=== PATIENT | female | born 1950 | race Caucasian/White ===

== ENCOUNTER 2022-12-22 11:13 | Emergency (ER) | payer MEDICARE, SELFPAY ==
[2022-12-22 11:33] VITALS: BP 141/66; PULSE 60; RESP 16; TEMP 37.2; O2SAT 99
--- NOTE | 2022-12-22 11:45 | ED.EYEPROB ---
HPI - Eye Problem General Chief complaint: Eye Problems Stated complaint: Right Eye Irritation Time Seen by Provider: 12/22/22 11:45 Source: patient Mode of arrival: ambulatory Limitations: no limitations History of Present Illness HPI Narrative: 72-year-old female presents with Right eye redness and drainage for 5 days. saw primary care physician and was given antibiotic eye drop. Reports that she got pinkeye from her granddaughter. Use antibiotic eye drop for 2 days without relief of symptoms. Thinks that the redness is actually worse. No vision changes. Denies pain. All systems reviewed and negative except as noted above. Related Data Home Medications Medication Instructions Recorded Confirmed atorvastatin 20 mg tablet 20 mg PO DAILY 12/22/22 12/22/22 sertraline 50 mg tablet 50 mg PO DAILY 12/22/22 12/22/22 trazodone 50 mg tablet 50 mg PO HS 12/22/22 12/22/22 Allergies Allergy/AdvReac Type Severity Reaction Status Date / Time Sulfa (Sulfonamide Allergy Severe rash Verified 12/22/22 11:30 Antibiotics) Review of Systems Review of Systems: CONSTITUTIONAL: Denies fever, chills, or sweats. EYES: Denies visual changes Reports right eye redness and discharge. ENT: Denies rhinorrhea, congestion, sore throat, or otalgia. CARDIOVASCULAR: Denies chest pain, palpitations, or edema. RESPIRATORY: Denies cough or dyspnea. GASTROINTESTINAL: Denies abdominal pain, nausea, vomiting, or diarrhea. GENITOURINARY: Denies dysuria or hematuria. SKIN: Denies rash or itching. MUSCULOSKELETAL: Denies back pain, joint pain, or myalgia. NEUROLOGIC: Denies headache, numbness, or weakness. PSYCHIATRIC: Denies anxiety or depression. All other systems reviewed are negative, except as documented in HPI. PMFSH Comments At time of signature, agree with nursing past medical, surgical, social and family history. There is no relevant family history pertinent to the presenting complaint. Exam Narrative: GENERAL: This is a well-nourished, well-developed patient, in no apparent distress. HEAD: normocephalic, atraumatic. EYES: PERRL. Right Sclera and conjunctiva erythematous, purulent ropey drainage. Vision is grossly intact. extraoccular motions intact. EARS: External ears normal NOSE: External nose normal NECK: Neck supple, non-tender without lymphadenopathy, masses or thyromegaly. CARDIOVASCULAR: Regular rate and rhythm without murmurs, gallops, or rubs. RESPIRATORY: Clear to auscultation. Breath sounds equal bilaterally. No wheezes, rales, or rhonchi. SKIN: warm, Dry, intact with no suspicious lesions or rash, good texture and turgor. NEURO: awake, alert, and oriented to person, place and time. There were no obvious focal neurologic abnormalities. EXTREMITIES: No joint tenderness, effusion, or edema noted. Course Course Level of Care: Express Care Visit Vital Signs Vital signs: Vital Signs Temperature 37.2 C 12/22/22 11:33 Pulse Rate 60 12/22/22 11:33 Respiratory Rate 16 12/22/22 11:33 Blood Pressure 141/66 H 12/22/22 11:33 Pulse Oximetry 99 12/22/22 11:33 Oxygen Delivery Room Air 12/22/22 11:33 Temperature 37.2 C 12/22/22 11:33 Pulse Rate 60 12/22/22 11:33 Respiratory Rate 16 12/22/22 11:33 Blood Pressure 141/66 H 12/22/22 11:33 Pulse Oximetry 99 12/22/22 11:33 Oxygen Delivery Room Air 12/22/22 11:33 reviewed MDM - Eye Problem MDM Narrative Medical decision making narrative: patient using polymyxin B eyedrops for 48 hours without relief of symptoms. Will stop polymyxin B and start ofloxacin. Patient agrees with plan of care. Will go to eye doctor for any worsening of symptoms. Patient is aware of diagnosis, understands and agrees to treatment plan. Anticipatory guidance given. Patient agrees to follow-up as directed and is aware of reasons to seek care at the emergency department. Portions of this record may have been created with voice recognitio
== END 2022-12-22 11:56 | disposition home or self-care (01) ==
PROVIDERS: Emergency Provider Nurse Practitioner Family; PCP Internal Medicine
DX: H10.31 Unspecified acute conjunctivitis, right eye (principal); E78.00 Pure hypercholesterolemia, unspecified; F41.9 Anxiety disorder, unspecified; F32.A Depression, unspecified
CPT/HCPCS: 99213; G0463